=== PATIENT | male | born 1970 | race Caucasian/White ===

== ENCOUNTER 2022-07-06 05:56 | Day surgery (SDC) | payer MEDICAID ==
[~2022-07-06] VITALS: Ht 175.3 cm; Wt 84.0 kg
[2022-07-06] MEDS ORDERED: LIDOCAINE/PF 2% 5 ML VIAL IM ONE (05:57)
[2022-07-06] MEDS ORDERED: PROPOFOL 1% 20 ML VIAL IVP ONE (05:57)
[2022-07-06 06:44] LABS: COVID AG,FIA SOURCE NASAL SWAB
[2022-07-06] MEDS ORDERED: SODIUM CHLORIDE 0.9% 1,000 ML ONE (07:06)
[2022-07-06] MEDS ORDERED: SODIUM CHLORIDE 0.9% 1,000 ML IV ONE (08:00)
== END 2022-07-06 09:45 | disposition home or self-care (01) ==
LOC: SURGERY 05:56
PROVIDERS: ATTEND Internal Medicine Gastroenterology
DX: K63.5 Polyp of colon (principal); K57.30 Diverticulosis of large intestine without perforation or abscess without bleeding; K63.89 Other specified diseases of intestine; K64.0 First degree hemorrhoids; Z20.822 Contact with and (suspected) exposure to COVID-19
CPT/HCPCS: 45385; 45380; 87426; C9803; C1769; J2704; J3490; J7030

== ENCOUNTER 2022-09-14 05:49 | Day surgery (SDC) | payer OTHER ==
[~2022-09-14] VITALS: Ht 175.3 cm; Wt 84.1 kg
[~2022-09-14 05:49] MED LIST: MULT-1366 PO
[2022-09-14] MEDS ORDERED: PROPOFOL 1% 20 ML VIAL IVP ONE (05:50)
[2022-09-14] MEDS ORDERED: GLYCOPYRROLATE 0.2 MG/ML VIAL IM ONE (05:50)
[2022-09-14] MEDS ORDERED: LIDOCAINE/PF 2% 5 ML SYRINGE IVP ONE (05:50)
[2022-09-14 06:32] LABS: COVID AG,FIA SOURCE NASOPHARYNGEAL
[2022-09-14] MEDS ORDERED: SODIUM CHLORIDE 0.9% 1,000 ML IV ONE (08:00)
== END 2022-09-14 09:45 | disposition home or self-care (01) ==
LOC: SURGERY 05:49
PROVIDERS: ATTEND Surgery
DX: K63.89 Other specified diseases of intestine (principal); K57.30 Diverticulosis of large intestine without perforation or abscess without bleeding; K56.699 Other intestinal obstruction unspecified as to partial versus complete obstruction; Z79.899 Other long term (current) drug therapy; Z98.890 Other specified postprocedural states; Z20.822 Contact with and (suspected) exposure to COVID-19
CPT/HCPCS: 45380; 87426; C1769; J2704; J3490 ×2; C9803; 88305